=== PATIENT | female | born 1935 | race Caucasian/White ===

== ENCOUNTER 2025-02-10 09:57 | Inpatient (IN) | payer MEDICARE ==
[~2025-02-10] VITALS: Ht 157.5 cm; Wt 63.7 kg
[~2025-02-10 09:57] MED LIST: ALBU90OI INH; CALCIUM CIT 311 EAC7 PO; CYCL10 PO; DIGO.125 PO; DOCU100 PO; ELIQUIS5 MG PO; ERGO400 PO; FURO20 PO; HYDCHL12.5 PO; HYDCHL25 PO; METF500 PO; METO50 PO; METOPROLOL TART75 MG PO; MULVITMIND PO; OMEPRAZOLE MAGN20 MG PO; Omeprazole20 M1 PO; POTA10T PO; PRESERVISION L1 EAC2 PO; REFRESH OPTIVE1 EACH OP; RISEDRONATE SOD35 M1 PO; SERT50 PO; SIMV40 PO; TOLT4 PO
[2025-02-10 10:16] LABS: pH Blood Venous 7.39 (7.34-7.37)
[2025-02-10 10:21] LABS: BASOPHILS ABSOLUTE AUTO 0.04 K/mm3 (0.00-0.23); BASOPHILS PERCENT AUTO 1 % (0-2); EOSINOPHILS ABSOLUTE AUTO 0.15 K/mm3 (0.00-0.68); EOSINOPHILS PERCENT AUTO 3 % (0-6); Hematocrit 45.2 % (33.0-51.0); Hemoglobin 14.6 g/dL (11.5-16.0); IMMATURE GRAN ABSOLUTE AUTO 0.02 K/mm3 (0.00-0.10); IMMATURE GRAN PERCENT AUTO 0 % (0-1); LYMPHOCYTES ABSOLUTE AUTO 0.87 K/mm3 (0.84-5.20); LYMPHOCYTES PERCENT AUTO 15 % (21-46); MONOCYTES ABSOLUTE AUTO 0.53 K/mm3 (0.16-1.47); MONOCYTES PERCENT AUTO 9 % (4-13); Mean Corpuscular HGB Conc 32.3 g/dL (31.5-36.5); Mean Corpuscular Volume 91 fL (80-100); NEUTROPHILS ABSOLUTE AUTO 4.19 K/mm3 (1.96-9.15); NEUTROPHILS PERCENT AUTO 72 % (41-73); NRBC ABSOLUTE 0.00 K/mm3 (0.00-0.02); NRBC Auto 0.0 /100 WBC (0.0-0.2); Platelet Count 205 K/mm3 (150-400); RDW Coefficient Variation 14.4 % (11.7-14.2); RDW Standard Deviation 48.1 fL (35.1-46.3)
[2025-02-10 10:43] LABS: Alanine Aminotransfer (ALT/SGP 16.0 U/L (12-78); Albumin, Blood 2.8 g/dL (3.4-5.0); Albumin/Globulin Ratio 0.8 (0.8-1.8); Anion Gap 5.0 mmol/L (3-11); Aspartate Aminotrans (AST/SGOT 21.0 U/L (12-37); Bilirubin, Total 0.4 mg/dL (0.1-1.0); Blood Urea Nitrogen 19.0 mg/dL (8-24); CO2, Blood 29.0 mmol/L (21-32); Calcium, Blood 8.9 mg/dL (8.5-10.1); Chloride, Blood 110.0 mmol/L (98-108); Creatinine, Blood 0.81 mg/dL (0.40-1.00); Globulin, Blood 3.3 g/dL (2.2-4.0); Glucose, Blood 121.0 mg/dL (70-99); Magnesium, Blood 1.7 mg/dL (1.6-2.4); Potassium, Blood 4.1 mmol/L (3.5-5.5); Sodium, Blood 140.0 mmol/L (136-145); Total Protein, Blood 6.1 g/dL (6.4-8.2)
[2025-02-10 13:41] VITALS: BP 193/82
[2025-02-10 15:11] VITALS: BP 157/88
[2025-02-10] MEDS ORDERED: ELIQUIS5 M2 PO (15:35)
[2025-02-10] MEDS ORDERED: ATOR20 PO (15:35)
[2025-02-10] MEDS ORDERED: DOCU100 PO (15:36)
[2025-02-10] MEDS ORDERED: Calcium Carbon500 MG PO (15:37)
[2025-02-10] MEDS ORDERED: Vitamin D1000 UNI1 PO (15:38)
[2025-02-10] MEDS ORDERED: DRON400T (15:40)
[2025-02-10] MEDS ORDERED: ASPI325 PO (15:41)
[2025-02-10] MEDS ORDERED: Hair, Skin & N1 EACH PO (15:42)
[2025-02-10 19:10] VITALS: BP 150/81
[2025-02-11 02:26] VITALS: BP 145/63
[2025-02-11 06:18] LABS: BASOPHILS ABSOLUTE AUTO 0.04 K/mm3 (0.00-0.23); BASOPHILS PERCENT AUTO 1 % (0-2); EOSINOPHILS ABSOLUTE AUTO 0.03 K/mm3 (0.00-0.68); EOSINOPHILS PERCENT AUTO 0 % (0-6); Hematocrit 42.0 % (33.0-51.0); Hemoglobin 13.3 g/dL (11.5-16.0); IMMATURE GRAN ABSOLUTE AUTO 0.03 K/mm3 (0.00-0.10); IMMATURE GRAN PERCENT AUTO 0 % (0-1); LYMPHOCYTES ABSOLUTE AUTO 0.74 K/mm3 (0.84-5.20); LYMPHOCYTES PERCENT AUTO 10 % (21-46); MONOCYTES ABSOLUTE AUTO 0.58 K/mm3 (0.16-1.47); MONOCYTES PERCENT AUTO 8 % (4-13); Mean Corpuscular HGB Conc 31.7 g/dL (31.5-36.5); Mean Corpuscular Volume 92 fL (80-100); NEUTROPHILS ABSOLUTE AUTO 5.71 K/mm3 (1.96-9.15); NEUTROPHILS PERCENT AUTO 80 % (41-73); NRBC ABSOLUTE 0.00 K/mm3 (0.00-0.02); NRBC Auto 0.0 /100 WBC (0.0-0.2); Platelet Count 196 K/mm3 (150-400); RDW Coefficient Variation 14.5 % (11.7-14.2); RDW Standard Deviation 48.7 fL (35.1-46.3)
[2025-02-11 06:48] LABS: Anion Gap 9 mmol/L (3-11); Blood Urea Nitrogen 15 mg/dL (8-24); CHOL/HDL RATIO 3.8; CO2, Blood 28 mmol/L (21-32); Calcium, Blood 8.6 mg/dL (8.5-10.1); Chloride, Blood 105 mmol/L (98-108); Cholesterol 169 mg/dL (50-200); Creatinine, Blood 0.84 mg/dL (0.40-1.00); Glucose, Blood 95 mg/dL (70-99); HDL Cholesterol 44 mg/dL (>39); LDL/HDL RATIO 1.7; Low Density Lipoprotein Chol 76 mg/dL (0-110); Potassium, Blood 4.2 mmol/L (3.5-5.5); Sodium, Blood 138 mmol/L (136-145); Triglycerides 243 mg/dL (30-160); Very Low Density Lipoprot Chol 48 mg/dL (6-32)
[2025-02-11 07:19] VITALS: BP 148/67
[2025-02-11] MEDS ORDERED: Calcium/Vit D 600 mg-400 Unit Tab PO SCH (08:00)
[2025-02-11] MEDS ORDERED: Beta-Carotene (A) W-C & E/Min 1 Tab PO SCH (09:00)
[2025-02-11] MEDS ORDERED: Cholecalciferol 1000 Unit Tablet (=25MCG) PO SCH (09:00)
[2025-02-11 12:00] VITALS: BP 170/140
[2025-02-11 13:49] LABS: Prothrombin Time Results 12.3 Sec (9.7-11.5)
[2025-02-11 15:27] VITALS: BP 151/78
[2025-02-11 19:37] VITALS: BP 153/70
[2025-02-12 04:08] VITALS: BP 149/67
[2025-02-12 07:17] VITALS: BP 168/67
[2025-02-12 15:06] VITALS: BP 145/71
== END 2025-02-12 16:42 | disposition home or self-care (01) | DRG 65 ==
LOC: ER 09:57 → MEDS 09:58 → ENPENDDIS 02-12 14:13 → MEDS 02-12 16:42
PROVIDERS: Student in an Organized Health Care Education/Training Program; ADMIT Internal Medicine
DX: I63.9 Cerebral infarction, unspecified (principal); G81.91 Hemiplegia, unspecified affecting right dominant side; I48.20 Chronic atrial fibrillation, unspecified; R47.81 Slurred speech; I12.9 Hypertensive chronic kidney disease with stage 1 through stage 4 chronic kidney disease, or unspecified chronic kidney disease; E11.22 Type 2 diabetes mellitus with diabetic chronic kidney disease; I27.20 Pulmonary hypertension, unspecified; N18.1 Chronic kidney disease, stage 1; I25.10 Atherosclerotic heart disease of native coronary artery without angina pectoris; Z66 Do not resuscitate; M10.9 Gout, unspecified; J44.9 Chronic obstructive pulmonary disease, unspecified; M81.0 Age-related osteoporosis without current pathological fracture; R29.708 NIHSS score 8; R47.1 Dysarthria and anarthria; E78.5 Hyperlipidemia, unspecified; F32.A Depression, unspecified; I25.2 Old myocardial infarction; G47.33 Obstructive sleep apnea (adult) (pediatric); Z90.710 Acquired absence of both cervix and uterus; Z79.84 Long term (current) use of oral hypoglycemic drugs; Z79.899 Other long term (current) drug therapy; Z90.89 Acquired absence of other organs; Z90.49 Acquired absence of other specified parts of digestive tract; Z96.651 Presence of right artificial knee joint; Z87.891 Personal history of nicotine dependence
CPT/HCPCS: 36415; 70450; 70496; 70498; 70551; 80048; 80053; 80061; 80162; 82803; 82947; 83036; 83735; 85025; 85610; 85730; 92610; 93005; 93010; 93306; 97116; 97162; 97165; 97530; 97535; 99285-25; A9270; G0378; Q9967

== ENCOUNTER 2025-02-13 14:29 | Emergency (ER) | payer MEDICARE ==
[~2025-02-13] VITALS: Ht 162.6 cm; Wt 81.7 kg
[~2025-02-13 14:29] MED LIST changes: +ASPI325 PO; +ATOR20 PO; +Calcium Carbon500 MG PO; +DRON400T; +ELIQUIS5 M2 PO; +Hair, Skin & N1 EACH PO; +Vitamin D1000 UNI1 PO
[2025-02-13 15:25] LABS: BASOPHILS ABSOLUTE AUTO 0.05 K/mm3 (0.00-0.23); BASOPHILS PERCENT AUTO 1 % (0-2); EOSINOPHILS ABSOLUTE AUTO 0.07 K/mm3 (0.00-0.68); EOSINOPHILS PERCENT AUTO 1 % (0-6); Hematocrit 48.3 % (33.0-51.0); Hemoglobin 15.1 g/dL (11.5-16.0); IMMATURE GRAN ABSOLUTE AUTO 0.03 K/mm3 (0.00-0.10); IMMATURE GRAN PERCENT AUTO 0 % (0-1); LYMPHOCYTES ABSOLUTE AUTO 0.80 K/mm3 (0.84-5.20); LYMPHOCYTES PERCENT AUTO 9 % (21-46); MONOCYTES ABSOLUTE AUTO 0.96 K/mm3 (0.16-1.47); MONOCYTES PERCENT AUTO 11 % (4-13); Mean Corpuscular HGB Conc 31.3 g/dL (31.5-36.5); Mean Corpuscular Volume 94 fL (80-100); NEUTROPHILS ABSOLUTE AUTO 7.05 K/mm3 (1.96-9.15); NEUTROPHILS PERCENT AUTO 79 % (41-73); NRBC ABSOLUTE 0.00 K/mm3 (0.00-0.02); NRBC Auto 0.0 /100 WBC (0.0-0.2); Platelet Count 251 K/mm3 (150-400); RDW Coefficient Variation 14.1 % (11.7-14.2); RDW Standard Deviation 48.8 fL (35.1-46.3)
[2025-02-13 15:52] LABS: Alanine Aminotransfer (ALT/SGP 14.0 U/L (12-78); Albumin, Blood 3.2 g/dL (3.4-5.0); Albumin/Globulin Ratio 0.9 (0.8-1.8); Anion Gap 12.0 mmol/L (3-11); Aspartate Aminotrans (AST/SGOT 26.0 U/L (12-37); Bilirubin, Total 0.6 mg/dL (0.1-1.0); Blood Urea Nitrogen 22.0 mg/dL (8-24); CO2, Blood 24.0 mmol/L (21-32); Calcium, Blood 9.3 mg/dL (8.5-10.1); Chloride, Blood 103.0 mmol/L (98-108); Creatinine, Blood 0.86 mg/dL (0.40-1.00); Globulin, Blood 3.5 g/dL (2.2-4.0); Glucose, Blood 115.0 mg/dL (70-99); Potassium, Blood 4.1 mmol/L (3.5-5.5); Sodium, Blood 135.0 mmol/L (136-145); Total Protein, Blood 6.7 g/dL (6.4-8.2)
[2025-02-13 16:48] LABS: Source, Urine Straight Cath
[2025-02-13 16:59] LABS: Color, Urine Yellow (P-Yellow); Glucose Qualitative, Urine Neg (Neg); Ketones, Urine 2+ (Neg); Leukocyte Esterase, Urine Neg (Neg); Protein, Urine 2+ (Neg); Specific Gravity, Urine 1.025 (1.003-1.022); Urobilinogen, Urine NORM (Normal)
[2025-02-13 17:13] LABS: Bilirubin, Urine 1+ (Neg)
[2025-02-13 17:15] LABS: Red Blood Cells, Urine 0-2 /hpf (0-2); White Blood Cells, Urine 0-2 /hpf (0-5)
[2025-02-13 17:39] VITALS: BP 129/53
== END 2025-02-13 18:34 | disposition home or self-care (01) ==
LOC: ER 14:29
PROVIDERS: Emergency Medicine
DX: R47.81 Slurred speech (principal); I12.9 Hypertensive chronic kidney disease with stage 1 through stage 4 chronic kidney disease, or unspecified chronic kidney disease; E11.22 Type 2 diabetes mellitus with diabetic chronic kidney disease; J44.9 Chronic obstructive pulmonary disease, unspecified; N18.1 Chronic kidney disease, stage 1; Z79.01 Long term (current) use of anticoagulants; Z79.899 Other long term (current) drug therapy; I48.91 Unspecified atrial fibrillation; Z90.49 Acquired absence of other specified parts of digestive tract; Z90.711 Acquired absence of uterus with remaining cervical stump; Z87.891 Personal history of nicotine dependence
CPT/HCPCS: 51701; 70450; 80053; 81001; 84484; 85025; 93005; 93010; 99285-25